=== PATIENT | male | born 1980 | race Caucasian/White ===

== ENCOUNTER → 2025-04-05 | Outpatient (CLI) | payer OTHER, SELFPAY ==
[2025-04-05 08:40] LABS: Glucose Estimated Average 100 mg/dL (80-131); Hemoglobin A1C 5.1 % Hgb (4.8-6.0)
[2025-04-05 08:58] LABS: C-Reactive Protein < 0.5 mg/dL (0.0-0.9); Cardiac Risk Estimate 5.5 RATIO (4.0-6.7); Cholesterol 275 mg/dL (132-200); HDL Cholesterol 50 mg/dL (40-60); LDL Cholesterol,Calculated 174 mg/dL (0-130); Triglycerides 256 mg/dL (30-150)
[2025-04-05 10:13] LABS: Sed Rate (ESR) 1 mm/hr (0-15)
[2025-04-16 07:05] LABS: Homocysteine* 28.2 umol/L (< OR = 13.5)
== END | disposition home or self-care (01) ==
PROVIDERS: PCP Nurse Practitioner; Referring Provider Nurse Practitioner; Visit Provider Nurse Practitioner
DX: E78.5 Hyperlipidemia, unspecified (principal); R79.82 Elevated C-reactive protein (CRP); R79.89 Other specified abnormal findings of blood chemistry; R73.09 Other abnormal glucose
CPT/HCPCS: 36415; 80061; 83036; 83090; 85652; 86140